=== PATIENT | female | born 1975 | race Caucasian/White ===

== ENCOUNTER 2023-08-03 10:26 | Outpatient (CLI) | payer OTHER | END 2023-08-03 23:59 | disposition home or self-care (01) | LOC: RAD 10:26 | PROVIDERS: ATTEND Internal Medicine Rheumatology | DX: M54.50 Low back pain, unspecified (principal) | CPT/HCPCS: 72050; 72170 ==

== ENCOUNTER 2024-11-09 13:52 | Outpatient (CLI) | payer OTHER ==
--- NOTE | 2024-11-09 16:20 | RADIOLOGY REPORT ---
EXAM: DI SHOULDER, COMPLETE (MIN 2 VWS) HISTORY: CHEST PAIN, PAIN IN BILATERAL SHOULDER;Cervicalgia RIGHT COMPARISON: None TECHNIQUE: 2 views of the right shoulder were performed. FINDINGS: No acute fracture or dislocation are identified about the right shoulder. There is mild acromioclavic ular hypertrophy without significant loss of subacromial space. IMPRESSION: 1. No acute fracture of the right shoulder. 2. Mild acromioclavicular hypertrophy.
--- NOTE | 2024-11-09 16:26 | RADIOLOGY REPORT ---
EXAM: DI SHOULDER, COMPLETE (MIN 2 VWS) HISTORY: CHEST PAIN, PAIN IN BILATERAL SHOULDER;Cervicalgia LEFT COMPARISON: None TECHNIQUE: 2 views of the left shoulder were performed. FINDINGS: No acute fracture or dislocation are identified about the left shoulder. There is mild acromioclavic ular hypertrophy without loss of subacromial space. IMPRESSION: 1. No acute fracture of the left shoulder. 2. Mild acromioclavicular hypertrophy.
--- NOTE | 2024-11-09 22:05 | RADIOLOGY REPORT ---
CERVICAL SPINE: 5 VIEWS REASON FOR EXAM: CHEST PAIN, PAIN IN BILATERAL SHOULDER;Cervicalgia COMPARISON: DI CERVICAL SPINE CMPLT on DOS: 08/03/23 TECHNIQUE: AP, lateral, bilateral oblique and open-mouth odontoid views of the cervical spine were o btained. FINDINGS: The lateral view shows the cervical spine from the skull base through C7. T1 and below are obscured on lateral view by overlying soft and bony structures. Vertebral body height is maintained. There is mild disc height loss at C4-C5 and C5-C6 without osteophyte formation. There is no listhesis . There is maintenance of the normal cervical lordosis. There is no malalignment of the lateral casey s. The tip of the dens is obscured by teeth. There is no significant osseous neural foraminal narrowi ng. The prevertebral soft tissues are within normal limits. IMPRESSION: Mild degenerative disc disease C4-CNo spondylolisthesis. No significant osseous neural foraminal narr owing.
--- NOTE | 2024-11-10 04:31 | RADIOLOGY REPORT ---
OF [facility] EXAMINATION: DI RIBS,UNILAT INDICATION: CHEST PAIN, PAIN IN BILATERAL SHOULDER;Cervicalgia COMPARISON: None TECHNIQUE: Frontal view of the chest and 3 views of the bilateral ribs history FINDINGS: No focal consolidation, pleural effusion or significant pneumothorax. Normal cardiomediastinal silhou ette. No displaced bilateral rib fracture. IMPRESSION: No acute cardiopulmonary disease. No displaced bilateral rib fracture.
== END 2024-11-09 23:59 | disposition home or self-care (01) ==
LOC: RAD 13:52
PROVIDERS: ATTEND Family Medicine
DX: M19.012 Primary osteoarthritis, left shoulder (principal); M19.011 Primary osteoarthritis, right shoulder; M50.321 Other cervical disc degeneration at C4-C5 level; M25.512 Pain in left shoulder; M25.511 Pain in right shoulder; R07.89 Other chest pain
CPT/HCPCS: 71100; 72050; 73030

== ENCOUNTER 2024-11-28 08:30 | Outpatient (CLI) | payer OTHER ==
--- NOTE | 2024-11-28 10:27 | RADIOLOGY REPORT ---
INDICATION: LEFT UPPER QUADRANT PAIN,EPIGASTRIC PAIN,UPPER ABDOMINAL PAIN, UNSPECIFIED TECHNIQUE: Multiple real-time sonographic images of the abdomen were obtained. COMPARISON: None FINDINGS: The liver is homogenous in echogenicity. The liver measures 16cm. No intrahepatic biliary ductal dilatation is noted. The gallbladder wall measures 0.2 cm and is unremarkable. No gallstones or sludge is seen. The co mmon duct measures 0.2 cm and is unremarkable. No pericholecystic fluid is noted. The right kidney measures 9.1 cm. No hydronephrosis. The left kidney measures 9.5cm. No hydronephro sis. There are multiple echogenic foci in the left kidney measuring up to 3 mm which may represent no nobstructive renal calcifications. The spleen measures 9.8 cm, within normal limits. The echogenicity is within normal limits. The pancreas is not well visualized due to obscuration from bowel gas. The visualized portions of the IVC and aorta are grossly unremarkable. IMPRESSION: There are multiple echogenic foci in the left kidney measuring up to 3 mm which may represent nonobst ructive renal calcifications.
== END 2024-11-28 23:59 | disposition home or self-care (01) ==
LOC: RAD 08:30
PROVIDERS: ATTEND Nurse Practitioner Family
DX: N20.0 Calculus of kidney (principal); R10.13 Epigastric pain; R10.12 Left upper quadrant pain; R10.10 Upper abdominal pain, unspecified
CPT/HCPCS: 76700

== ENCOUNTER 2025-01-03 12:14 | Outpatient (CLI) | payer OTHER ==
--- NOTE | 2025-01-03 16:26 | RADIOLOGY REPORT ---
PROCEDURE: MR MRI LUMBAR SPINE, MR MRI C SPINE, MR MRI THORACIC SPINE Indication: CERVICALGIA,PAIN IN THORACIC SPINE,LOW BACK PAIN COMPARISON: None TECHNIQUE: Multiplanar multisequence images of the the cervical, thoracic, lumbar lumbar spine are obtained. FINDINGS: Cervical spine: The cervical vertebral body heights are maintained. Eddq-hg-rzajdkgj multilevel disc space narrowing and desiccation. No abnormal cervical marrow edema. No prevertebral edema. Atlantooccipital, atlantoaxial articulations intact. Straightening of normal cervical spine curvature. C2-3: Small disc osteophyte complex. No spinal canal stenosis. Mild left neural foraminal stenosis. C3-4: Disc osteophyte complex narrowing the ventral CSF space. Dorsal CSF space preserved. Thecal sac measures 9 mm AP. Mild spinal canal stenosis. Moderate right and mild left neural foraminal stenosis. C4-5: Small disc osteophyte complex. Moderate right and lljw-ch-khznakvo left neural foraminal stenosis. C5-6: Small disc osteophyte complex narrowing the ventral CSF space. Dorsal CSF space preserved. Thecal sac measures 10 mm AP. No spinal canal stenosis. Moderate right and mild left neural foraminal stenosis. C6-7: Small disc osteophyte complex. No spinal canal stenosis. Moderate right and mild left neural foraminal stenosis. C7-T1: No spinal canal stenosis. Moderate right and mild left neural foraminal stenosis. Thoracic spine: The thoracic vertebral body heights are maintained. Alignment maintained. Minimal Thoracic multilevel disc space narrowing. The thoracic cord is normal in morphology and signal. No high-grade thoracic spinal canal, neural foraminal stenosis. Lumbar spine: For the purpose of this examination, there are 5 lumbar vertebral body types counting from the lumbosacral junction. Lumbar heights are maintained. Wwao-ut-gmqaypgf multilevel disc space narrowing and desiccation most pronounced at L4-5 and L5-S1. Conus terminates at the level of the L1 vertebral body level. No abnormal marrow edema. Alignment maintained. T12-L1: No spinal canal, neural foraminal stenosis. Mild facet and flavum hypertrophy. L1-2: Tiny disc protrusion. Mild facet and flavum hypertrophy. No spinal canal stenosis. Mild bilateral neural foraminal stenosis. L2-3: Tiny disc protrusion. Moderate facet and flavum hypertrophy. No spinal canal stenosis. Mild bilateral neural foraminal stenosis. L3-4: No significant disc protrusion. Uuqb-aw-yrbqoyoo facet and flavum hypertrophy. No spinal canal stenosis. Mild bilateral neural foraminal stenosis. L4-5: 3 mm disc protrusion with central annular tear. Moderate facet and flavum hypertrophy. No spinal canal stenosis. Eqfe-cx-tpbsbhil bilateral neural foraminal stenosis. L5-S1: 3 mm disc protrusion with central annular tear. Moderate facet and flavum hypertrophy. No spinal canal stenosis. Awdb-wp-gazlzjsa bilateral neural foraminal stenosis. IMPRESSION: Caxm-pt-ctonhmvx lumbar degenerative disc disease. Annular tears at L4-5 and L5-S1. Jasy-tt-clrjdbdj neural foraminal stenosis L4-5, L5-S1. Mild neural foraminal stenosis L2-3, L3-4. Romb-az-xsxxytqy cervical degenerative disc disease. Mild spinal canal stenosis C4-3 4. Wcoh-hj-kazrvejo multilevel cervical neural foraminal stenosis, greater on the right neural foramina Minimal thoracic degenerative disc disease. No significant spinal canal stenosis in the thoracic spine.
== END 2025-01-03 23:59 | disposition home or self-care (01) ==
LOC: MRI02 12:14
PROVIDERS: ATTEND Physician Assistant
DX: M51.27 Other intervertebral disc displacement, lumbosacral region (principal); M47.817 Spondylosis without myelopathy or radiculopathy, lumbosacral region; M54.2 Cervicalgia; M48.07 Spinal stenosis, lumbosacral region; M48.02 Spinal stenosis, cervical region; M25.78 Osteophyte, vertebrae
CPT/HCPCS: 72141; 72146; 72148